=== PATIENT | male | born 1965 | race Caucasian/White ===

== ENCOUNTER 2018-12-09 12:35 | Emergency (ER) | payer BC ==
[~2018-12-09] VITALS: Ht 180.3 cm; Wt 99.8 kg
--- NOTE | 2018-12-09 12:52 | NUR ---
PT IS IN ROOM #2A. DR CHRISTIANSON EVALUATED THE PT.
--- NOTE | 2018-12-09 13:53 | NUR ---
PT WAS D/C'd TO HOME. D/C INSTRUCTIONS GIVEN TO THE PT.
[2018-12-09 13:54] VITALS: BP 136/75
== END 2018-12-09 13:56 | disposition home or self-care (01) ==
LOC: ER 12:35
DX: J02.8 Acute pharyngitis due to other specified organisms (principal); B97.89 Other viral agents as the cause of diseases classified elsewhere
CPT/HCPCS: 36415; 86403; 87070; A4663

== ENCOUNTER 2018-12-13 04:29 | Emergency (ER) | payer BC ==
[~2018-12-13] VITALS: Ht 180.3 cm; Wt 106.6 kg
--- NOTE | 2018-12-13 05:28 | NUR ---
Patient discharged to home in stable conditon. Written and verbal after care instructions given. Patient verbalizes understanding of instructions. Pt ambulated out of ER in stable gait. All belongings w pt. VSS. NAD noted.
[2018-12-13 05:29] VITALS: BP 156/95
== END 2018-12-13 05:32 | disposition home or self-care (01) ==
LOC: ER 04:30
DX: J06.9 Acute upper respiratory infection, unspecified (principal)
CPT/HCPCS: A4663

== ENCOUNTER 2019-12-24 20:51 | Emergency (ER) | payer BC ==
[~2019-12-24] VITALS: Ht 180.3 cm; Wt 108.0 kg
[2019-12-24] MEDS ORDERED: NEOMY/BACITRA/POLYMYXIN B OINT UD PACKET TP ONE ×2 (21:14→21:15)
--- NOTE | 2019-12-24 21:14 | NUR ---
Patient discharged to home in stable condition. Written and verbal after care instructions given. Patient verbalizes understanding of instructions. Stressed follow up or return to ER for worsening s/s.
[2019-12-24 21:15] VITALS: BP 148/101
== END 2019-12-24 21:18 | disposition home or self-care (01) ==
LOC: ER 20:53
DX: S00.31XA Abrasion of nose, initial encounter (principal); W45.8XXA Other foreign body or object entering through skin, initial encounter; Y93.89 Activity, other specified; Y92.89 Other specified places as the place of occurrence of the external cause
CPT/HCPCS: A4663

== ENCOUNTER 2020-02-06 06:54 | Emergency (ER) | payer BC ==
[~2020-02-06] VITALS: Ht 180.3 cm; Wt 103.0 kg
--- NOTE | 2020-02-06 07:12 | NUR ---
Dr. Soto at bedside for MSE
[2020-02-06] MEDS ORDERED: ACETAMINOPHEN ES 500 MG TABLET ONE (07:20)
[2020-02-06] MEDS ORDERED: ACETAMINOPHEN ES 500 MG TABLET PO ONE (07:30)
[2020-02-06 07:41] LABS: *BILIRUBIN,URIN 1+ (NEGATIVE); *BLOOD, URINE 3+ (NEGATIVE); *CLARITY,URINE SLIGHTLY CLOUDY (CLEAR); *COLOR,URINE YELLOW (YELLOW); *KETONES,URINE TRACE (NEGATIVE); *UROBILINOGEN,URINE 0.2 E.U./dl (NORMAL); LEUKOCYTE ESTERASE ,URINE NEGATIVE (NEGATIVE); NITRITE, URINE NEGATIVE (NEGATIVE); PH,URINE 5.5 (5.0-8.0); UGLUCOSE NEGATIVE (NEGATIVE)
[2020-02-06 07:53] LABS: BACTERIA,URINE NONE SEEN /HPF (NONE SEEN); CALCIUM OXALATE CRYSTALS,UR MODERATE /HPF (NONE SEEN); RBC,URINE 20-50 /HPF (0-3); SQUAMOUS EPITHELIAL CELL,UR FEW /HPF (NONE SEEN)
[2020-02-06 07:54] LABS: MUCUS,URINE FEW /LPF (0-FEW)
[2020-02-06] MEDS ORDERED: KETOROLAC TROMETHAMINE 30 MG INJ IVP ONE (08:00)
[2020-02-06] MEDS ORDERED: IV NORMAL SALINE 1000 ML BAG IV ONE (08:00)
--- NOTE | 2020-02-06 08:10 | NUR ---
PT TAKEN TO RADIOLOGY FOR CT SCAN.
--- NOTE | 2020-02-06 08:17 | NUR ---
PT BACK IN ER FROM RADIOLOGY.
[2020-02-06 08:21] LABS: BASOPHILS % (AUTO) 0.6 % (0.0-2.0); CREATININE 1.2 mg/dL (0.6-1.3); EOSINOPHILS # (AUTO) 0.2 K/uL (0.0-0.7); EOSINOPHILS % (AUTO) 2.7 % (0.0-7.0); HEMATOCRIT 46.9 % (36.7-47.1); HEMOGLOBIN 15.9 g/dL (12.5-16.3); LYMPHOCYTES # (AUTO) 2.2 K/uL (20.0-40.0); LYMPHOCYTES % (AUTO) 36.2 % (20.5-51.5); MEAN CORPUSCULAR HEMOGLOBIN 27.8 uug (23.8-33.4); MEAN CORPUSCULAR HGB CONC 34 g/dL (32.5-36.3); MEAN CORPUSCULAR VOLUME 82.1 fL (73.0-96.2); MONOCYTES # (AUTO) 0.4 K/uL (2.0-10.0); MONOCYTES % (AUTO) 7.3 % (0.0-11.0); NEUTROPHILS # (AUTO) 3.2 K/uL (1.8-8.9); NEUTROPHILS % (AUTO) 53.2 % (38.5-71.5); PLATELET COUNT (AUTO) 274 K/uL (152-348); POTASSIUM 3.4 mmol/L (3.5-5.1); RED BLOOD CELL COUNT(AUTO) 5.71 MIL/uL (4.06-5.63); WHITE BLOOD COUNT (AUTO) 6.1 K/uL (3.6-10.2)
[2020-02-06] MEDS ORDERED: KETOROLAC TROMETHAMINE 30 MG INJ ONE (08:21)
[2020-02-06 08:27] LABS: BILIRUBIN,DIRECT 0.1 mg/dL (0.0-0.2); BILIRUBIN,TOTAL 0.6 mg/dL (0.2-1.0)
[2020-02-06] MEDS ORDERED: MORPHINE SULFATE 4 MG/1 ML DISP.SYRIN IV ONE (08:45)
[2020-02-06] MEDS ORDERED: MORPHINE SULFATE 4 MG/1 ML DISP.SYRIN ONE (08:45)
[2020-02-06] MEDS ORDERED: ONDANSETRON 4 MG/2 ML VIAL ONE (08:45)
[2020-02-06] MEDS ORDERED: ONDANSETRON 4 MG/2 ML VIAL IV ONE (08:45)
--- NOTE | 2020-02-06 09:13 | NUR ---
Patient discharged to home in stable condition. Written and verbal after care instructions given. Patient verbalizes understanding of instructions. Stressed follow up or return to ER for worsening s/s. ALL BELONGINGS W/ PT. PT STATES HIS FRIEND WILL PICK HIM UP IN PRIVATE VEHICLE. 20G IV ACCESS IN LFA REMOVED PRIOR TO D/C - INNER CANNULA INTACT.
[2020-02-06 09:16] VITALS: BP 136/91
== END 2020-02-06 09:33 | disposition home or self-care (01) ==
LOC: ER 06:57
DX: N13.2 Hydronephrosis with renal and ureteral calculous obstruction (principal); N40.1 Benign prostatic hyperplasia with lower urinary tract symptoms; R39.15 Urgency of urination
CPT/HCPCS: 36415; 76770; 80048; 80076; 81001; 85025; 87086; 96361; 96374; 96375; 99284; J1885; J2270; J2405; A4663; A9150; J7030